=== PATIENT | male | born 1940 | race Caucasian/White ===

== ENCOUNTER 2016-06-26 08:47 | Emergency (ER) | payer MEDICARE, OTHER ==
[2016-06-26 09:00] VITALS: BP 131/62
[2016-06-26] MEDS ORDERED: 50% Dextrose in Water 50 ML Syringe IVPUSH ONE ×3 (09:43→09:53)
[2016-06-26] MEDS ORDERED: 50% Dextrose in Water 50 ML Syringe ONE (09:44)
[2016-06-26] MEDS ORDERED: Sodium Chloride 0.9% 1,000 ML IV SCH (10:00)
--- NOTE | 2016-06-26 12:36 | EDM.PDOC ---
ED HPI DIABETIC EMERGENCY - General Chief Complaint: Diabetic Complaint Stated Complaint: [facility] Time Seen by Provider: 06/26/16 09:04 Source: Reports: Patient, Family History Limitations: Reports: No limitations - History of Present Illness INITIAL COMMENTS - FREE TEXT/NARRATIVE: History of present illness: [The patient presented by ambulance with hypoglycemia. He was treated in the ambulance but presented here with a bedside glucose of 20. He was arousable but quickly fell back to sleep. He taken his insulin this morning and usually he eats within a half hour but failed to do so this morning. He's been on insulin for about 7 years but has never had a hypoglycemic episode like this. His is with him he's been doing well he's not been ill with nausea vomiting no fevers chills cough or cold symptoms. ] Review of systems: As per history of present illness and below otherwise all systems reviewed and negative. Past medical history: As per history of present illness and as reviewed below otherwise noncontributory. Surgical history: As per history of present illness and as reviewed below otherwise noncontributory. Social history: No reported history of drug or alcohol abuse. Family history: As per history of present illness and as reviewed below otherwise noncontributory. Physical exam: Gen.: Initially he was arousable but quickly fell back to sleep. he would open his eyes to stimulation HEENT anterior questions with simple yes or no answers HEENT: Atraumatic, normocephalic, pupils reactive, negative for conjunctival pallor or scleral icterus, mucous membranes moist, throat clear, neck supple, nontender, trachea midline. Lungs: Clear to auscultation, breath sounds equal bilaterally, chest nontender. Heart: S1S2, regular, negative for clicks, rubs, or JVD. Abdomen: Soft, nondistended, nontender. Negative for masses or hepatosplenomegaly. Negative for costovertebral tenderness. Pelvis: Stable nontender. Genitourinary: Deferred. Rectal: Deferred. Extremities: Atraumatic, negative for cords or calf pain. Neurovascular unremarkable. Neuro: He became awake alert and oriented after his hypoglycemia was treated. Cranial nerves II through XII unremarkable. Cerebellum unremarkable. Motor and sensory unremarkable throughout. Exam nonfocal. Diagnostics: [CBC complete metabolic panel lactic acid and urinalysis were done. Bedside glucose of around 400 was obtained after pushing 3 50 g apules of glucose.] Therapeutics: [He was here several hours and slept but eventually awoke and was conversant and pleasant and ready to go home] Impression: [Hypoglycemic episode] Plan: [He remember not to repeat the same mistake to me this morning and hopefully that won't happen again] Definitive disposition and diagnosis as appropriate pending reevaluation and review of above. - Related Data Allergies/ADRs: Allergies Allergy/AdvReac Type Severity Reaction Status Date / Time No Known Allergies Allergy Verified 09/01/15 08:39 Home Meds: Home Meds Finasteride 1 tab PO DAILY 04/13/15 [History] Gabapentin [Neurontin] 1 cap PO BID 04/13/15 [History] Insulin Glarg,Human.Rec.Analog [Lantus Solostar] 28 units SQ BID 04/13/15 [ History] Labetalol HCl [Labetalol] 200 mg PO BID 04/13/15 [History] Latanoprost [Xalatan 0.005% Ophth Soln] 1 drop EYEBOTH BEDTIME 04/13/15 [History ] Lisinopril 40 mg PO BID 04/13/15 [History] Rosuvastatin [Crestor] 0.5 tab PO BEDTIME 04/13/15 [History] Tamsulosin [Flomax] 1 tab PO BEDTIME 04/13/15 [History] Zolpidem Tartrate 1 tab PO BEDTIME 04/13/15 [History] amLODIPine [Norvasc] 10 mg PO DAILY 04/13/15 [History] hydrALAZINE [Apresoline] 20 mg PO TID 04/13/15 [History] Benzonatate 100 mg PO TID 02/19/16 [History] Isosorbide Dinitrate 10 mg PO TID 02/19/16 [History] Metolazone 2.5 mg PO ASDIRECTED 02/19/16 [History] Nitroglycerin [Nitrostat] 0.4 mg PO ASDIRECTED PRN 02/19/16 [History] Ticagrelor [Brilinta] 90 mg PO BID 02/19/16 [History] Torsemide 100 mg PO DAILY 02/19/16 [History] Aspirin [Ecotrin] 81 mg PO DAILY 02/22/16 [History] Cetirizine HCl 5 mg PO DAILY 02/22/16 [History] Ferrous Sulfate 325 mg PO BIDMEALS 02/22/16 [History] Hydrocodone/Acetaminophen [Hydrocodon-Acetaminophen 5-325] 1 each PO Q4HR [History] Vitamin E 400 unit PO DAILY 02/22/16 [History] Nortriptyline 3 tab PO BEDTIME 06/26/16 [History] Past Medical History HEENT History: Reports: Cataract, Glaucoma Cardiovascular History: Reports: CAD, Heart Failure, High cholesterol, Hypertension, [place], Stents Respiratory History: Reports: COPD Gastrointestinal History: Reports: Diverticulosis Genitourinary History: Reports: Acute renal failure, Chronic renal insuffiency, Dialysis, Diabetic nephropathy Musculoskeletal History: Reports: Back pain, chronic Endocrine/Metabolic History: Reports: Diabetes, type II - Past Surgical History Cardiovascular Surgical History: Reports: Coronary artery stent, Percutaneous transluminal angioplasty GI Surgical History: Reports: Colonoscopy, Other (see below) Other GI Surgeries/Procedures: colectomy Social & Family History - Tobacco Use Smoking Status *Q: Never Smoker - Caffeine Use Caffeine Use: Reports: Coffee, Tea - Recreational Drug Use Recreational Drug Use: No ED ROS GENERAL - Review of Systems Review Of Systems: ROS reveals no pertinent complaints other than HPI. ED EXAM GENERAL NO PERIP PULSE - Physical Exam Exam: See Below Course - Vital Signs Last Recorded V/S: Last Vital Signs Temp 34.1 C L 06/26/16 09:12 Pulse 65 06/26/16 09:12 Resp 16 06/26/16 09:12 BP 131/62 06/26/16 09:12 Pulse Ox 97 06/26/16 09:12 - Orders/Labs/Meds Orders: Active Orders 24 hr Category Date Time Status Accu Check [Blood Glucose Check, Bedside] [RC] ONETIME Care 06/26/16 09:37 Active GLUCOSE POC LAB TO COLLECT [POC] Routine Lab 06/26/16 09:48 Received UA W/MICROSCOPIC [URIN] Stat Lab 06/26/16 09:28 Uncollected Sodium Chloride 0.9% [Normal Saline] 1,000 ml Med 06/26/16 10:00 Active IV ASDIRECTED Medication Orders Sodium Chloride (Normal Saline) 1,000 mls @ 500 mls/hr IV ASDIRECTED RUBINA Last Admin: 06/26/16 10:23 Dose: 500 mls/hr Labs: Laboratory Tests 06/26/16 06/26/16 06/26/16 Range/Units 09:28 09:28 10:42 WBC 9.9 (4.5-11.0) K/uL RBC 3.79 L (4.30-5.90) M/uL Hgb 11.3 L (12.0-15.0) g/dL Hct 34.5 L (40.0-54.0) % MCV 91 (80-98) fL MCH 30 (27-31) pg MCHC 33 (32-36) % Plt Count 248 (150-400) K/uL Neut % (Auto) 59 (36-66) % Lymph % (Auto) 26 (24-44) % Barry % (Auto) 13 H (2-6) % Eos % (Auto) 2 (2-4) % Baso % (Auto) 0 (0-1) % Sodium 141 (140-148) mmol/L Potassium 3.9 (3.6-5.2) mmol/L Chloride 106 (100-108) mmol/L Carbon Dioxide 24 (21-32) mmol/L Anion Gap 11.2 (5.0-14.0) mmol/L BUN 38 H (7-18) mg/dL Creatinine 2.1 H (0.8-1.3) mg/dL Est Cr Clr Drug Dosing TNP Estimated GFR (MDRD) 31 L (>60) Glucose 30 L* (74-106) mg/dL Lactic Acid 1.2 (0.4-2.0) mmol/L Calcium 9.0 (8.5-10.1) mg/dL Total Bilirubin 0.2 (0.2-1.0) mg/dL AST 14 L (15-37) U/L ALT 24 (12-78) U/L Alkaline Phosphatase 45 L (46-116) U/L Total Protein 6.9 (6.4-8.2) g/dL Albumin 3.6 (3.4-5.0) g/dL Globulin 3.3 (2.3-3.5) g/dL Albumin/Globulin Ratio 1.1 L (1.2-2.2) Meds: Medications Generic Name Dose Route Start Last Admin Trade Name Freq PRN Reason Stop Dose Admin Sodium Chloride 1,000 mls @ 500 mls/hr 06/26/16 10:00 06/26/16 10:23 Normal Saline IV 500 mls/hr ASDIRECTED RUBINA Administration Discontinued Medications Generic Name Dose Route Start Last Admin Trade Name Ricardo OLSEN Reason Stop Dose Admin Dextrose/Water 50 ml 06/26/16 09:43 06/26/16 10:25 Dextrose 50% In Water IVPUSH 06/26/16 09:44 50 ml ONETIME ONE Administration Dextrose/Water Confirm 06/26/16 09:44 Dextrose 50% In Water Administered 06/26/16 09:45 Dose 50 ml .ROUTE .STK-MED ONE Dextrose/Water 50 ml 06/26/16 09:49 06/26/16 10:25 Dextrose 50% In Water IVPUSH 06/26/16 09:50 50 ml ONETIME ONE Administration Dextrose/Water 50 ml 06/26/16 09:53 06/26/16 10:25 Dextrose 50% In Water IVPUSH 06/26/16 09:54 50 ml ONETIME ONE Administration Departure - Departure Time of Disposition: 12:36 Disposition: Home, Self-Care 01 Condition: good Clinical Impression: Hypoglycemia due to insulin Forms: ED Department Discharge Additional Instructions: You can resume taking your insulin as prescribed as long as you are eating the way he usually eat at the times that you usually eat. next time you see your Dr. you can inform him or her of this event so they are aware of it. - My Orders Last 24 Hours: My Active Orders 06/26/16 09:28 UA W/MICROSCOPIC [URIN] Stat 06/26/16 09:37 Accu Check [Blood Glucose Check, Bedside] [RC] ONETIME 06/26/16 09:48 GLUCOSE POC LAB TO COLLECT [POC] Routine 06/26/16 10:00 Sodium Chloride 0.9% [Normal Saline] 1,000 ml IV ASDIRECTED - Assessment/Plan Last 24 Hours: My Active Orders 06/26/16 09:28 UA W/MICROSCOPIC [URIN] Stat 06/26/16 09:37 Accu Check [Blood Glucose Check, Bedside] [RC] ONETIME 06/26/16 09:48 GLUCOSE POC LAB TO COLLECT [POC] Routine 06/26/16 10:00 Sodium Chloride 0.9% [Normal Saline] 1,000 ml IV ASDIRECTED
== END 2016-06-26 13:07 | disposition home or self-care (01) ==
LOC: JP.ED 08:47
DX: E16.2 Hypoglycemia, unspecified (principal); I25.10 Atherosclerotic heart disease of native coronary artery without angina pectoris; I50.9 Heart failure, unspecified; I25.2 Old myocardial infarction; I12.9 Hypertensive chronic kidney disease with stage 1 through stage 4 chronic kidney disease, or unspecified chronic kidney disease; N18.9 Chronic kidney disease, unspecified; E78.00 Pure hypercholesterolemia, unspecified; E11.9 Type 2 diabetes mellitus without complications; J44.9 Chronic obstructive pulmonary disease, unspecified; Z79.4 Long term (current) use of insulin; Z79.82 Long term (current) use of aspirin; Z79.899 Other long term (current) drug therapy; Z95.5 Presence of coronary angioplasty implant and graft; Z98.890 Other specified postprocedural states
CPT/HCPCS: 36415; 80053; 82962; 83605; 85025; 96361; 96374; 99285; J7040; 99284